=== PATIENT | male | born 1995 | race Caucasian/White ===

== ENCOUNTER 2023-09-10 09:08 | Emergency (ER) | payer SELFPAY ==
[~2023-09-10] VITALS: Ht 175.3 cm; Wt 90.7 kg
[2023-09-10 09:30] VITALS: BP 159/94; PULSE 83; RESP 18; TEMP 97; O2SAT 98
[2023-09-10 12:20] VITALS: BP 159/94; PULSE 83; RESP 18; TEMP 97; O2SAT 98
== END 2023-09-10 12:20 | disposition left against medical advice (07) ==
LOC: MED 09:08
DX: R05.9 Cough, unspecified (principal); J00 Acute nasopharyngitis [common cold]; Z53.21 Procedure and treatment not carried out due to patient leaving prior to being seen by health care provider
CPT/HCPCS: 99281